=== PATIENT | female | born 1960 | race Hispanic/Latino ===

== ENCOUNTER 2018-01-20 17:04 | Emergency (ER) | payer BC ==
[~2018-01-20] VITALS: Ht 170.2 cm; Wt 98.0 kg
--- OUTSIDE RECORDS SUMMARY | ~2018-01-20 | XMS | Clinical Summary ---
Demographics + + + | Address | [address] [facility] [address] | | | [place] [address] | + + + | Home Phone | | + + + | Preferred Language | Unknown | + + + | Marital Status | | + + + | Temple Affiliation | Unknown | + + + | Race | Unknown | + + + | Ethnic Group | Unknown | + + + Author + + + | Author | [facility] | | | and Rcana | + + + | Organization | [facility] | | | and Rcana | + + + | Address | Unknown | + + + | Phone | Unavailable | + + + Support + + + + + | Name | Relationship | Address | Phone | + + + + + | Pablo Parikh | ECON | [address] | | | | | [place] | | | | | [phone] | | + + + + + | Pablo Parikh | ECON | Unknown | | + + + + + Care Team Providers + +------+ + | Care Assembler Truck Trailer Name | Role | Phone | + +------+ + | Lico Hearn MD | PP | | + +------+ + Allergies + + + + + + | Active Allergy | Reactions | Severity | Noted | Comments | | | | | Date | | + + + + + + | Penicillins | Shortness Of Breath, | High | 11/19/19 | | | | Rash | | 14 | | + + + + + + | Sulfa Antibiotics | Shortness Of Breath, | High | 11/19/19 | | | | Rash | | 14 | | + + + + + + Current Medications + + +-------+---------+------+------+-------+ | Prescription | Sig. | Disp. | Refills | Star | End | Statu | | | | | | t | Date | s | | | | | | Date | | | + + +-------+---------+------+------+-------+ | meloxicam (MOBIC) | Take 15 mg by mouth | | | 05/2 | | Activ | | 15 mg tablet | Daily. | | | 09/21 | | e | | | | | | 14 | | | + + +-------+---------+------+------+-------+ | losartan (COZAAR) | Take 100 mg by mouth | | | 06/0 | | Activ | | 100 MG tablet | Daily. | | | 06/23 | | e | | | | | | 14 | | | + + +-------+---------+------+------+-------+ | | Take 12.5 mg by | | | 06/0 | | Activ | | hydrochlorothiazide | mouth every morning. | | | 01/21 | | e | | (MICROZIDE) 12.5 MG | | | | 14 | | | | capsule | | | | | | | + + +-------+---------+------+------+-------+ | levonorgestrel | 1 Device by | | | | | Activ | | (MIRENA) 20 MCG/24HR | Intrauterine route | | | | | e | | IUD | once. | | | | | | + + +-------+---------+------+------+-------+ | warfarin | Take 5 mg by mouth | | | | | Activ | | (COUMADIN) 5 mg | Daily. | | | | | e | | tablet | | | | | | | + + +-------+---------+------+------+-------+ | enoxaparin | Inject 100 mg under | | | | | Activ | | (LOVENOX) 100 mg/mL | the skin 2 times | | | | | e | | injection | daily. 0.9ML BID | | | | | | + + +-------+---------+------+------+-------+ | MULTIPLE VITAMIN | Take 1 tablet by | | | | | Activ | | PO | mouth Daily. | | | | | e | + + +-------+---------+------+------+-------+ | COENZYME Q-10 PO | Take 1 capsule by | | | | | Activ | | | mouth Daily. | | | | | e | + + +-------+---------+------+------+-------+ | Calcium | Take 1,200 mg by | | | | | Activ | | Carbonate-Vit D-Min | mouth Daily. | | | | | e | | (CALCIUM 1200 PO) | | | | | | | + + +-------+---------+------+------+-------+ Active Problems + + + | Problem | Noted Date | + + + | Superficial thrombophlebitis of left leg | 11/18/2013 | + + + Family History + + +------+ + | Medical History | Relation | Name | Comments | + + +------+ + | Heart disease | Father | | | + + +------+ + | Heart disease | Mother | | | + + +------+ + + +------+--------+ + | Relation | Name | Status | Comments | + +------+--------+ + | Father | | | | + +------+--------+ + | Mother | | | | + +------+--------+ + Social History + +-------+ +--------+------+ | Tobacco Use | Types | Packs/Day | Years | Date | | | | | Used | | + +-------+ +--------+------+ | Never Smoker | | | | | + +-------+ +--------+------+ + +---+---+---+ | Smokeless Tobacco: | | | | | Never Used | | | | + +---+---+---+ + + +---------+ + | Alcohol Use | Drinks/We | oz/Week | Comments | | | ek | | | + + +---------+ + | No | | | | + + +---------+ + + + + | Sex Assigned at | Date Recorded | | | | + + + | Not on file | | + + + Last Filed Vital Signs + + + + | Vital Sign | Reading | Time Taken | + + + + | Blood Pressure | 132/68 | 12/17/20131057 PDT | + + + + | Pulse | 72 | 12/17/20131057 PDT | + + + + | Temperature | 36.6 C (97.8 F) | 12/17/20131057 PDT | + + + + | Respiratory Rate | 16 | 12/17/20131057 PDT | + + + + | Oxygen Saturation | 98% | 12/17/20131057 PDT | + + + + | Inhaled Oxygen | - | - | | Concentration | | | + + + + | Weight | 112.5 kg (248 lb) | 12/17/20131057 PDT | + + + + | Height | 170.2 cm (5' 7") | 12/17/20131057 PDT | + + + + | Body Mass Index | 38.84 | 12/17/20131057 PDT | + + + + Plan of Treatment + + + + + | Health Maintenance | Due Date | Last Done | Comments | + + + + + | Vaccine: | | | | | Dtap/Tdap/Td (1 - | 0 | | | | Tdap) | | | | + + + + + | Cervical Cancer | | | | | Screening (Pap) | 1 | | | + + + + + | Vaccine: Influenza | | | | | (#1) | 8 | | | + + + + + Results Not on filefrom Last 3 Months Insurance +-------+--------+ +------+-------+---------+ | Payer | Benefi | Subscriber | Type | Phone | Address | | | t Plan | ID | | | | | | / | | | | | | | Group | | | | | +-------+--------+ +------+-------+---------+ | BCBS | BCBS | [id number] | PPO | | | | | OUT OF | 1 | | | | | | STATE | | | | | | | PPO | | | | | +-------+--------+ +------+-------+---------+ + +--------+ +--------+ + + | Guarantor Name | Accoun | Relation to | Date | Phone | Billing Address | | | t Type | Patient | of | | | | | | | | | | + +--------+ +--------+ + + | ARSENIO PARIKH | Person | Self | [birth year] | Home: | [address] | | [place] | al/Fam | | 1 | [phone] [place] | | | [place] | | | [phone] | + +--------+ +--------+ + +
--- OUTSIDE RECORDS SUMMARY | ~2018-01-20 | XMS | Clinical Summary ---
Demographics + + + | Address | [address] [facility] [address] [facility] | | | [place] [address] | + + + | Home Phone | | + + + | Preferred Language | Unknown | + + + | Marital Status | | + + + | Sabianism Affiliation | Unknown | + + + | Race | Unknown | + + + | Ethnic Group | Unknown | + + + Author + + + | Author | [facility] | | | and Rcana | + + + | Organization | [facility] | | | and Rcana [...] [place] | | | | | [phone] | | + + + + + | Pablo Parikh | ECON | Unknown | | + + + + + Care Team Providers + +------+ + | Care Shipfitter Name | Role | Phone | + [...] +-------+--------+ +------+-------+---------+ | BCBS | BCBS | [id number] | PPO | | | | | [...] | [place] | | | [phone] | [phone] | + +--------+ +--------+ + +
[~2018-01-20 17:04] MED LIST: B COMPLETE1 EACH PO; CALCIUM + VITA1 EACH PO; CELEBREX100 MG; COQ-10100 MG PO; COZAAR100 MG PO; DAILY MULTIPLE1 EACH PO; HYDROCHLOROTH12.5 M1 PO; HYDROCHLOROTH12.5 MG PO; HYDROCODON-ACE1 EA11 PO; MIRALAX17 GM PO; NUCYNTA75 MG PO; OMEPRAZOLE MAGN20 MG PO; SINGULAIR10 MG PO; XARELTO10 MG PO
[2018-01-20] MEDS ORDERED: FUROSEMIDE20 MG PO (17:53)
[2018-01-20] MEDS ORDERED: PROTONIX40 MG PO (20:49)
== END 2018-01-20 21:09 | disposition home or self-care (01) ==
LOC: ED 17:04
DX: K30 Functional dyspepsia (principal); I10 Essential (primary) hypertension; Z88.0 Allergy status to penicillin; Z88.2 Allergy status to sulfonamides; Z79.899 Other long term (current) drug therapy
CPT/HCPCS: 76705; 80053; 81001; 83690; 85025; 96374; 99284; J7030

== ENCOUNTER 2019-02-13 16:47 | Emergency (ER) | payer BC ==
[~2019-02-13] VITALS: Ht 170.2 cm; Wt 120.2 kg
[~2019-02-13 16:47] MED LIST changes: +DICLOFENAC SODI75 MG PO; +FOLGARD TABLET1 EAC1 PO; +FUROSEMIDE20 MG PO; +GABAPENTIN300 MG PO; +INDOMETHACIN50 MG PO; +METOPROLOL SUCC50 MG PO; +OXYCODONE HCL5 MG PO; +PROTONIX40 MG PO; +TYLENOL325 M1 PO
--- OUTSIDE RECORDS SUMMARY | 2019-02-13 16:50 | XMS ---
PreManage Notification: ARSENIO BARKLEY Security Truck Dock Material Mover Events No recent Security Events currently on file CRITERIA MET - ALEXANDR CARE PROVIDERS SOFIYA LAL [facility] 12/16/2018-Current PHONE: [phone] Silvestre Marie Primary Care Laure HINKLE PHONE: Unknown elis Case or Roving Inspector Current PHONE: Unknown Yesenia Dempsey Current Orthopedic Surgery \T\ Fracture [facility] PHONE: Unknown Kayla has no Care Guidelines for this patient. Chucky VISIT COUNT (12 MO.) 2 JAKE Gaffney TOTAL 2 NOTE: Visits indicate total known visits. ED/UCC VISIT TRACKING (12 MO.) 02/13/2019 16:47 [facility] [place] TYPE: Emergency COMPLAINT: - RIGHT KNEE/ POST OP ISSUE 12/15/2018 18:[address] [facility] [place] TYPE: Emergency COMPLAINT: - LEFT ANKLE PAIN/NON INJURY DIAGNOSES: - Other retirement (current) drug therapy - Essential (primary) hypertension - Pain in left ankle and joints of left foot - Allergy status to penicillin - Allergy status to sulfonamides status INPATIENT VISIT TRACKING (12 MO.) No inpatient visits to display in this time frame [id number]
== END 2019-02-13 17:27 | disposition home or self-care (01) ==
LOC: ED 16:47
DX: T81.33XA Disruption of traumatic injury wound repair, initial encounter (principal); I10 Essential (primary) hypertension; Z88.0 Allergy status to penicillin; Z88.2 Allergy status to sulfonamides; Z79.899 Other long term (current) drug therapy
CPT/HCPCS: 99283

== ENCOUNTER 2019-02-24 07:47 | Day surgery (SDC) | payer BC ==
[~2019-02-24] VITALS: Ht 170.2 cm; Wt 120.2 kg
[~2019-02-24 07:47] MED LIST changes: +LEVAQUIN750 MG PO
--- NOTE | 2019-02-24 09:20 | NUR ---
CHECKED IN WITH PATIENT. PATIENT WAS OFFERED A WARM BLANKET, DECLINED AT THIS TIME. PATIENT DID COMPLAIN OF PAIN IN JOINTS SHE STATED SHE HAD NOT TAKEN HER MEDICATION TODAY. ANESTHESIA PROVIDER WAS NOTIFIED. ON HIS WAY TO PATIENTS ROOM.
[2019-02-24] MEDS ORDERED: HYDROCODON-ACE1 EA11 PO (10:04)
--- NOTE | 2019-02-24 10:12 | NUR ---
02/24/19 Chasidy2 Daniela Marie 1002 PT TO PACU AWAKE BUT DROWSY, DRESSING PICCO WITH ONE DIME SIZE SPOT OF BLOOD ON IT. O2 VIA MASK AT 10L CHANGED TO NASAL CANNULA AT 3L ON ARRIVAL. PT MAINTAINS SAT AT 98%.
--- NOTE | 2019-02-25 08:01 | OR ---
[facility] [address] [place], [place] [address] Signed DATE OF OPERATION: 02/24/2019 SURGEON: Hardik Marie MD PREOPERATIVE DIAGNOSIS: Wound necrosis, right knee, lateral incision. POSTOPERATIVE DIAGNOSIS: Wound necrosis, right knee, lateral incision. PROCEDURE PERFORMED: Irrigation and debridement of skin and subcutaneous tissue. ANESTHESIA: General. BLOOD LOSS: Minimal. BRIEF HISTORY: Arsenio is a 58-year-old female, who about a month ago underwent an IT band release and lengthening. She healed uneventfully. However, she developed some fat necrosis at the top part of her wound, a little bit of wound healing issue at the inferior aspect. The wound opened up and was treated with packing until we can get her to surgery. Risks and benefits of operative treatment were discussed with her and she elected to proceed. There was no active infection seen. DESCRIPTION OF PROCEDURE: Once consent was obtained, she was taken to the operating room. After adequate anesthesia, she was placed on operating table. All downside pressure points were well padded. The right leg was prepped and draped in a standard sterile fashion. The wound dehiscence part was limited to about 0.5 cm deep into the fat and subcutaneous tissue. The distal part of the wound was not opened, but was just a little bit poorly healed. We then did an elliptical incision around both and in the proximal end, we undermined a little bit to allow closure. The wounds were then copiously irrigated with IrriSept irrigation. The wounds were then closed using 2-0 nylon in a [id number] configuration to reduce wound tension. Excellent approximation was obtained with no skin tension. The wounds were then cleansed and a CHANDLER wound VAC dressing was placed. She was then awakened and taken to the recovery room in satisfactory condition. All sponge, Electronically Signed By: HARDIK MARIE MD 02/25/19 0801 PATIENT NAME: ARSENIO BARKLEY OPERATIVE REPORT DATE OF : 60 REPORT #: [id number] PHYSICIAN: HARDIK MARIE MD PCP: SOFIYA LAL MD REPORT IS CONFIDENTIAL AND NOT TO BE RELEASED WITHOUT AUTHORIZATION [facility] [address] [place] [address] [place], [place] [address] Signed needle, and instrument counts were correct. Hardik Marie MD BA/MODL /[id number] Copies: ~ Electronically Signed By: HARDIK MARIE MD 02/25/19 0801 PATIENT NAME: ARSENIO BARKLEY OPERATIVE REPORT DATE OF : 60 REPORT #: [id number] PHYSICIAN: HARDIK MARIE MD PCP: SOFIYA LAL MD REPORT IS CONFIDENTIAL AND NOT TO BE RELEASED WITHOUT AUTHORIZATION
== END 2019-02-24 12:15 | disposition home or self-care (01) ==
LOC: DS 07:47 → OPS 07:47 → DS 10:45 → OPS 12:15
PROVIDERS: Specialist
PROC: 0JBN0ZZ Excision of Right Lower Leg Subcutaneous Tissue and Fascia, Open Approach (ICD-10-PCS; principal; 2019-02-24 10:45)
DX: T81.31XA Disruption of external operation (surgical) wound, not elsewhere classified, initial encounter (principal); I10 Essential (primary) hypertension; E66.9 Obesity, unspecified; Z68.41 Body mass index [BMI] 40.0-44.9, adult; Z88.0 Allergy status to penicillin; Z88.2 Allergy status to sulfonamides; Z79.899 Other long term (current) drug therapy; Z98.890 Other specified postprocedural states
CPT/HCPCS: J0690; J1885; J2250; J2405; J2704; J2765; J3010; J7120

== ENCOUNTER 2022-07-05 07:10 | Day surgery (SDC) | payer BC ==
[~2022-07-05] VITALS: Ht 170.2 cm; Wt 118.2 kg
--- NOTE | 2022-07-05 10:56 | NUR ---
PT ALERT,ORIENTED AND SUPPORTED BY HER . PT HAS HAD PREVIOUS SCOPE. ALL QUESTIONS ASKED ANSWERED. GAVE BLESSING AND WILL OFLLOW
--- NOTE | 2022-07-05 10:58 | NUR ---
07/05/22 Abner8 Haley Allen 1054-PATIENT ARRIVED TO PACU ON RA RR EVEN. PATIENT REACTIVE TO VERBAL STIMULI REMAINS DROWSY. DENIES PAIN OR NAUSEA. IVF INFUSING. ABDOMEN SOFT. PATIENT DOZES BACK TO SLEEP.
--- NOTE | 2022-07-06 07:27 | OR ---
[facility] [address] [place], [place] [address] Signed DATE OF OPERATION: 07/05/2022 SURGEON: Miracle Guevara MD PREOPERATIVE DIAGNOSES: 1. Long redundant colon. 2. Screening. POSTOPERATIVE DIAGNOSIS: Long redundant colon. PROCEDURE: Colonoscopy without biopsy. ESTIMATED BLOOD LOSS: None. INDICATIONS: Arsenio is a 61-year-old, obese female, asked to see me for her followup colonoscopy. I helped her and at age 50 for her initial screening colonoscopy. She had a very long redundant colon. She took a large amount of Versed and fentanyl. We had to roll her supine several times in order to finally reach the cecum. There were no polyps. We asked her to return in 10 years for repeat colonoscopy. She has no lower GI complaints. There is no family history of colon cancer or polyps. In the office, I had given her a pamphlet on colonoscopy. She understands the nature of the test. There is risk including, but not limited to gas bloating, crampy abdominal pain, bleeding, perforation requiring surgery, and missed diagnosis. We also reviewed the need for monitored anesthesia care given her body mass index as well as her very long redundant colon. She had expressed understanding and wished to proceed. PROCEDURE IN DETAIL: Arsenio was taken into our endoscopy suite and placed in the left lateral decubitus position. She was given IV propofol per our nurse erection shop supervisor. A digital rectal exam was performed and this was unremarkable. No external hemorrhoids. Good sphincter tone. The adult colonoscope was introduced and sure enough she has an obvious long redundant colon. We had to move her several times into the supine position and back into the left lateral decubitus position with two people helping with abdominal compression. We eventually made our way down to the appendiceal orifice. Overall, our prep was good, although would hurt if she took more prep in the future. The scope was then slowly withdrawn. We took several pictures throughout for photodocumentation. There were no Electronically Signed By: MIRACLE GUEVARA MD 07/06/22 0727 PATIENT NAME: ARSENIO BARKLEY OPERATIVE REPORT DATE OF : 60 REPORT #: [id number] PHYSICIAN: MIRACLE GUEVARA MD PCP: SOFIYA LAL MD REPORT IS CONFIDENTIAL AND NOT TO BE RELEASED WITHOUT AUTHORIZATION [facility] [address] [place] [id number] Signed polyps. She had no diverticulosis. Again, a very long redundant colon particular on the left side. Once in the rectum, the scope had been retroflexed and there was very minimal internal hemorrhoid tissue. After this, the gas was suctioned out. The colonoscope removed. Arsenio tolerated the procedure quite well. RECOMMENDATIONS: Arsenio can return in 10 years for repeat colonoscopy. She certainly would benefit from some additional bowel prep. She should always have monitored anesthesia care. Miracle Guevara MD ALB/CORINAL /[id number] cc: MD Sofiya Brunner MD Copies: MIRACLE GUEVARA MD, RUSSELL BARR MD ~ Electronically Signed By: MIRACLE GUEVARA MD 07/06/22 0727 PATIENT NAME: ARSENIO BARKLEY OPERATIVE REPORT DATE OF : 60 REPORT #: [id number] PHYSICIAN: MIRACLE GUEVARA MD PCP: SOFIYA LAL MD REPORT IS CONFIDENTIAL AND NOT TO BE RELEASED WITHOUT AUTHORIZATION
== END 2022-07-05 11:25 | disposition home or self-care (01) ==
LOC: DS 07:10
PROVIDERS: ATTEND Colon & Rectal Surgery
PROC: 0DJD8ZZ Inspection of Lower Intestinal Tract, Via Natural or Artificial Opening Endoscopic (ICD-10-PCS; principal; 2022-07-05 09:00)
DX: Z12.11 Encounter for screening for malignant neoplasm of colon (principal); K63.89 Other specified diseases of intestine; E66.9 Obesity, unspecified; I10 Essential (primary) hypertension; Z68.41 Body mass index [BMI] 40.0-44.9, adult
CPT/HCPCS: J2704; J7121

== ENCOUNTER 2024-05-03 17:16 | Observation (INO) | payer BC ==
[~2024-05-03] VITALS: Ht 170.2 cm; Wt 129.0 kg
[~2024-05-03 17:16] MED LIST changes: +AMLODIPINE BESY10 MG PO; +HYDROMORPHONE HC4 MG PO; +MONTELUKAST SOD10 MG PO; -TYLENOL325 M1 PO; +TYLENOL325 MG
[2024-05-03] MEDS ORDERED: ondansetron HCL 4 MG/2 ML VIAL IV ONE (17:45)
[2024-05-03] MEDS ORDERED: LOSARTAN-HCTZ1 EAC2 PO (17:49)
[2024-05-03] MEDS ORDERED: METOPROLOL SUC100 MG PO (17:50)
[2024-05-03] MEDS ORDERED: LYRICA75 MG PO (17:51)
[2024-05-03] MEDS ORDERED: PHENTERMINE HCL30 MG PO (17:51)
[2024-05-03 18:11] LABS: BASOPHILS 0.1 % (0-2); EOSINOPHILS 1.4 % (0-6); HEMATOCRIT 40.4 % (35.0-50.0); HEMOGLOBIN 13.8 g/dL (12.0-18.0); LYMPHOCYTES 2.8 % (24-44); MCH 33.4 (27-36); MCHC 34.1 g/dl (30-36); MCV 97.9 fl (81-99); MONOCYTES 1.4 % (0-12); NEUTROPHILS 94.3 % (39-80); PLATELET COUNT 208 K/uL (140-440); RBC 4.13 M/ul (4.3-5.7); RDW 13.4 (10.5-15.0)
[2024-05-03 18:27] LABS: ALBUMIN 2.8 g/dL (3.4-5.0); ALBUMIN/GLOBULIN RATIO 0.74 (1.1-2.4); ANION GAP 13.6 (7-21); BUN/CREATININE RATIO 19.35 (6.0-28.6); CALCIUM 7.8 mg/dL (8.5-10.1); CREATININE, SERUM 1.24 mg/dL (0.55-1.02); POTASSIUM 3.6 mmol/L (3.5-5.1); PROTEIN, TOTAL 6.6 g/dL (6.4-8.2)
[2024-05-03] MEDS ORDERED: SODIUM CHLORIDE 0.9% 1,000 ML IV PRN (19:00)
[2024-05-03] MEDS ORDERED: HYDROmorphone HCL 1 MG/ML SYR IV ONE (19:00)
[2024-05-03] MEDS ORDERED: PANTOPRAZOLE SODIUM 40 MG/10 ML VIAL IV ONE (19:00)
[2024-05-03] MEDS ORDERED: KETOROLAC TROMETHAMINE 15 MG/ML VIAL IV ONE (19:45)
[2024-05-03 19:56] LABS: BILIRUBIN, URINE NEGATIVE (negative); BLOOD/HGB, URINE NEGATIVE (Negative); KETONE, URINE NEGATIVE (Negative); LEUK ESTERASE, URINE NEGATIVE (negative); NITRITE, URINE NEGATIVE (negative); PH, URINE 7.5 (5-7)
[2024-05-03] MEDS ORDERED: ACETAMINOPHEN 500 MG TAB PO ONE (21:00)
[2024-05-03] MEDS ORDERED: LACTATED RINGER'S 1,000 ML IV ONE (21:30)
[2024-05-03] MEDS ORDERED: HYDROmorphone HCL 1 MG/ML SYR IV PRN (22:00)
[2024-05-03 22:01] LABS: LACTIC ACID, BLOOD 2.1 mmol/L (0.4-2.0)
[2024-05-04] VITALS (15 sets, daily range): BP systolic 117–145; BP diastolic 49–75
[2024-05-04] MEDS ORDERED: LACTATED RINGER'S 1,000 ML IV SCH ×2 (00:15→10:30)
[2024-05-04] MEDS ORDERED: FAMOTIDINE 20 MG/ 2 ML VIAL IV ONE (00:15)
[2024-05-04] MEDS ORDERED: CEFAZOLIN SODIUM 2 GM/20 ML SYR IV ONE (00:15)
[2024-05-04] MEDS ORDERED: HYDROmorphone HCL 1 MG/ML SYR IV PRN ×2 (00:15→12:00)
[2024-05-04] MEDS ORDERED: ondansetron HCL 4 MG/2 ML VIAL IV PRN ×3 (00:15→12:00)
--- NOTE | 2024-05-04 01:00 | NUR ---
RECIEVED REPORT FROM ED RN. PATIENT ARRIVED VIA WHEELCHAIR. PATIENT AMBULATED TO THE BED WITHOUT DIFFICULTY. ADMISSION COMPLETED. IV FLUIDS INFUSING ORDERED. AT BEDSIDE. PATIENT DENIES ADDITIONAL NEEDS AT THIS TIME. CALL LIGHT IN REACH.
[2024-05-04 02:44] LABS: LACTIC ACID, BLOOD 2.7 mmol/L (0.4-2.0)
--- NOTE | 2024-05-04 02:52 | NUR ---
PT RESTING WITH EYES CLOSED. AWAKENS EASILY. VS OBTAINED, WNL. PT REPORTS SHE IS RESTING COMFORTABLY. DENIES NEEDS.
--- NOTE | 2024-05-04 03:07 | NUR ---
RECIEVED CRITICAL VALUE LAB RESULT FOR LACTIC REPEAT, 2.7. CONTACTED PROVIDER. PHONE ORDER VERIFIED BY REPEAT BACK TO REPEAT THE LACTIC LAB, NO OTHER NEW ORDERS. LACTIC REDRAW ORDER ENTERED.
--- NOTE | 2024-05-04 04:36 | NUR ---
IN ROOM TO ROUND ON PATIENT. PATIENT RESTING IN BED ON BACK WITH EYES CLOSED. RESPIRATIONS EVEN AND ULABORED. NO NEEDS IDENTIFIED AT THIS TIME. CALL LIGHT IN REACH.
[2024-05-04 05:22] LABS: RDW 13.7 (10.5-15.0)
[2024-05-04 05:25] LABS: BASOPHILS 0.3 % (0-2); EOSINOPHILS 1.8 % (0-6); HEMATOCRIT 37.7 % (35.0-50.0); LYMPHOCYTES 6.6 % (24-44); MCH 33.5 (27-36); MCHC 34.5 g/dl (30-36); MCV 97.3 fl (81-99); MONOCYTES 5.4 % (0-12); NEUTROPHILS 85.9 % (39-80); PLATELET COUNT 179 K/uL (140-440); RBC 3.87 M/ul (4.3-5.7)
[2024-05-04 05:39] LABS: ALBUMIN 2.3 g/dL (3.4-5.0); ALBUMIN/GLOBULIN RATIO 0.72 (1.1-2.4); BILIRUBIN, TOTAL 0.6 ng/dL (0.2-1.0); BUN/CREATININE RATIO 32.95 (6.0-28.6); CALCIUM 7.5 mg/dL (8.5-10.1); CREATININE, SERUM 0.88 mg/dL (0.55-1.02); PROTEIN, TOTAL 5.5 g/dL (6.4-8.2)
[2024-05-04] MEDS ORDERED: CEFAZOLIN SODIUM 1 GM/10 ML SYR IV SCH (06:00)
--- NOTE | 2024-05-04 07:13 | NUR ---
REPORT RECEIVED FROM BOARD OPERATOR RN RALEIGH. PATIENT IS SITTING UPRIGHT IN BED WITH EYES OPEN AND RESPIRATIONS ARE EVEN AND UNLABORED. PATIENT STATED NO NEEDS AT THIS TIME. CALL LIGHT AND PERSONAL BELONGINGS ARE WITHIN REACH.
--- NOTE | 2024-05-04 08:31 | NUR ---
PATIENT IS SITTING UPRIGHT IN BED WITH EYES OPEN AND RESPIRATIONS ARE EVEN AND UNLABORED. FULL ASSESSMENT COMPLETE AND DOCUMENTED IN THE CHART. PATIENT IS ALERT AND ORIENTED TIMES FOUR. PATIENT WITH NO COMPLAINTS OF PAIN AT THIS TIME. PATIENT IS ON ROOM AIR AND LUNG SOUNDS ARE CLEAR BILATERALLY. CARDIAC WITH NORMAL S1 AND S2 ON AUSCULTATION. RADIAL AND PEDAL PULSES ARE STRONG BILATERALLY. BLE WITH 1+ PITTING EDEMA. SENSATION INTACT WITH NO COMPLAINTS OF NUMBNESS OR TINGLING. PATIENT IS NPO AT THIS TIME. BOWEL TONES ARE ACTIVE IN ALL FOUR QUADRANTS. SKIN WITH SCATTERED BRUISING NOTED. IV SITE IN THE RAC AND THE LEFT FOREARM BOTH FLUSHED WITH 10 ML NORMAL SAINE. IV IN THE RAC IS SALINE LOCKED AND THE DRESSING IS CLEAN, DRY, AND INTACT. IV IN THE L FOREARM WITH LR INFUSING AT 125 ML/HR. IV DRESSING IS CLEAN, DRY, AND INTACT. PATIENT STATED NO FURTHER NEEDS AT THIS TIME. CALL LIGHT AND PERSONAL BELONGINGS ARE WITHIN REACH.
[2024-05-04] MEDS ORDERED: FAMOTIDINE 20 MG/ 2 ML VIAL IV SCH ×2 (09:00→10:32)
--- NOTE | 2024-05-04 09:12 | NUR ---
PATIENT IS SITTING UPRIGHT IN BED WITH EYES OPEN AND RESPIRATIONS ARE EVEN AND UNLABORED. PATIENT IS SITTING IN THE CHAIR AT BEDSIDE. LR IS INFUSING AT 125 ML/HR. PATIENT STATED NO FURTHER NEEDS AT THIS TIME. CALL LIGHT AND PERSONAL BELONGINGS ARE WITHIN REACH.
--- NOTE | 2024-05-04 10:10 | NUR ---
RN AND ROUNDED ON THE PATIENT AT THIS TIME. GALLBLADDER PACKET GIVEN TO THE PATIENT AND THE PATIENTS . PATIENT AND STATED NO FURTHER QUESTIONS OR CONCERNS AT THIS TIME. CALL LIGHT AND PERSONAL BELONGINGS ARE WITHIN REACH.
--- NOTE | 2024-05-04 10:27 | NUR ---
patient is npo, and has not voided on this tso's shift yet. call light within reach.
[2024-05-04] MEDS ORDERED: KETOROLAC TROMETHAMINE 30 MG/ML VIAL IV PRN (10:30)
[2024-05-04] MEDS ORDERED: MORPHINE SULFATE 10 MG/ML VIAL IV PRN (10:30)
[2024-05-04] MEDS ORDERED: AMLODIPINE BESYLATE 10 MG TAB PO SCH (10:32)
[2024-05-04] MEDS ORDERED: LOSARTAN POTASSIUM 100 MG TAB PO SCH (10:33)
[2024-05-04] MEDS ORDERED: METOPROLOL SUCCINATE 100 MG TABCR PO SCH (10:33)
[2024-05-04] MEDS ORDERED: iopamidoL 30 ML VIAL ONE (10:36)
[2024-05-04] MEDS ORDERED: SODIUM CHLORIDE 0.9% 60 ML IV ONE (10:37)
--- NOTE | 2024-05-04 11:03 | NUR ---
MEDICATIONS ADMINISTERED PER THE EMAR. PATIENT IS NOW WITH LAVELLE, SAND ANALYST AND GETTING PRE-PROCEDURE [place] COMPLETE. PATIENT STATED NO FURTHER NEEDS AT THIS TIME. CALL LIGHT AND PERSONAL BELONGINGS ARE WITHIN REACH.
[2024-05-04] MEDS ORDERED: propofoL 200 MG/20 ML VIAL ONE (11:17)
[2024-05-04] MEDS ORDERED: ROCURONIUM BROMIDE 50 MG/5 ML SYR ONE ×2 (11:17→12:12)
[2024-05-04] MEDS ORDERED: LIDOCAINE HCL 2% 5 ML SDV ONE ×2 (11:17→11:20)
[2024-05-04] MEDS ORDERED: KETOROLAC TROMETHAMINE 30 MG/ML VIAL ONE (11:17)
[2024-05-04] MEDS ORDERED: ACETAMINOPHEN 1,000 MG/100 ML VIAL ONE (11:17)
[2024-05-04] MEDS ORDERED: ondansetron HCL 4 MG/2 ML VIAL ONE (11:17)
[2024-05-04] MEDS ORDERED: LIDOCAINE HCL 2% 20 MG/ML VIAL INJ ONE (11:17)
[2024-05-04] MEDS ORDERED: SUCCINYLCHOLINE IN 0.9% NACL 200 MG/10 ML SYRINGE ONE (11:17)
[2024-05-04] MEDS ORDERED: SUGAMMADEX SODIUM 200 MG/2 ML ML ONE (11:17)
[2024-05-04] MEDS ORDERED: DEXAMETHASONE SOD PHOS 4 MG/ML VIAL ONE (11:17)
[2024-05-04] MEDS ORDERED: fentaNYL citrate 100 MCG/2 ML VIAL ONE (11:17)
[2024-05-04] MEDS ORDERED: SCOPOLAMINE 1 MG/3 DAYS PATCH 1 EACH TDSY ONE (11:18)
[2024-05-04] MEDS ORDERED: dexmedeTOMIDine HCl 200 MCG/2 ML VIAL ONE (11:19)
[2024-05-04] MEDS ORDERED: KETAMINE in NS 50 MG/5 ML SYR ONE (11:19)
--- NOTE | 2024-05-04 11:27 | NUR ---
PATIENT LEFT THE FLOOR AT THIS TIME WITH LILIA SORIA FROM OR/PACU/DAY SURGERY.
[2024-05-04] MEDS ORDERED: CEFAZOLIN SOD 1,000 MG/10 ML VIAL ONE (11:36)
[2024-05-04] MEDS ORDERED: NALOXONE HCL 0.4 MG SYR IV PRN (12:00)
[2024-05-04] MEDS ORDERED: fentaNYL citrate 50 MCG/ML SDV IV PRN (12:00)
[2024-05-04] MEDS ORDERED: droPERidol 5 MG/2 ML VIAL IV PRN (12:00)
[2024-05-04] MEDS ORDERED: IBLOOD GLUCOSE TEST STRIP 1 EA TEST VI PRN (12:00)
[2024-05-04] MEDS ORDERED: PROCHLORPERAZINE EDISYLATE 10 MG/2 ML VIAL IV PRN (12:00)
--- NOTE | 2024-05-04 12:18 | EKG ---
[facility] [address] [facility] [place] [address] Signed Normal sinus rhythm Minimal voltage criteria for LVH, may be normal variant ( R in aVL ) Inferior infarct , age undetermined Abnormal ECG When compared with ECG of 28-JUN-2022 10:32, premature ventricular complexes are no longer present Criteria for Septal infarct are no longer present Inferior infarct is now present Confirmed by Sera Cooney MD ([id number]) on 05/04/2024 12:18:12 PM Electronically Signed By: SERA COONEY DO 05/04/24 1218 PATIENT NAME: ARSENIO BARKLEY Electrocardiogram DATE OF : 60 PHYSICIAN: SERA COONEY DO REPORT #: [id number] REPORT IS CONFIDENTIAL AND NOT TO BE RELEASED WITHOUT AUTHORIZATION
--- NOTE | 2024-05-04 12:38 | NUR ---
PATIENT REMAINS OFF THE FLOOR AT THIS TIME IN SURGERY. PATIENT IS IN THE ROOM AND SITTING ON THE COUCH AND READING A BOOK.
[2024-05-04] MEDS ORDERED: LACTATED RINGER'S 1,000 ML IV ONE (12:54)
--- NOTE | 2024-05-04 13:16 | NUR ---
PATIENT REMAINS OFF THE FLOOR AT THIS TIME.
--- NOTE | 2024-05-04 13:31 | NUR ---
05/04/24 1331 EPIFANIO MCCULLOUGH 1317 PT ARRIVED TO PACU VIA STREACHER. PT NEEDING SOME POSITIONAL SUPPORT AND JAW THRUSTING TO KEEP AIRWAY PATENT. PT HAS ORAL AIRWAY IN PLACE AND 10L O2 VIA FACE MASK. REPORT TAKEN FROM DEBONE PROCESSING SUPERVISOR. ALL MONITORS ATTACHED. 1319 PT RESPONSIVE TO TACTILE STIMULI, PT ABLE TO FOLLOW COMMANDS TO OPEN MOUTH AND REMOVE ORAL AIRWAY. 1325 PT AROUSABLE TO VERBAL STIMULI. PT STATES SHE HAS NO PAIN AT THIS TIME OR NAUSEA. PT REPORTS JUST FEELIG TIRED. PT ABLE TO FOLLOW COMMANDS FOR DEEP BREATHING.
[2024-05-04] MEDS ORDERED: PANTOPRAZOLE SODIUM 40 MG TABEC PO SCH (13:36)
[2024-05-04] MEDS ORDERED: CIPROFLOXACIN500 MG PO (13:42)
[2024-05-04] MEDS ORDERED: CIPROFLOXACIN 500 MG TAB PO SCH (13:45)
[2024-05-04] MEDS ORDERED: PERCOCET 7.5-31 EACH PO (13:45)
[2024-05-04] MEDS ORDERED: CEFAZOLIN SODIUM 3 GM/30 ML SYR IV SCH (14:00)
--- NOTE | 2024-05-04 14:07 | NUR ---
Pt arrived to the room via PACU bed at about 1358 hours. Pt report received from LILIA Shin. Pt scoot transferred from PACU bed to bed. PT is drowsy but awake, alert, and oriented. Pt able to sip water and eat ice chips, no nausea, reports slight pain in her abdomen and rates it 4 out of 10 at this time. Pt's at bedside. VSS. Pt provided with contreras anderson and osvaldo. PACU placed pt on 3LPM O2 via NC as she desats while asleep. 5 lap sites with SS visualized and noted that the umbilical site has moderate amount of serosanguinous drainage. Pt has a scopalomine patch behind her left ear. Side rails up x4, call light in reach.
[2024-05-04] MEDS ORDERED: IBUPROFEN 600 MG TAB PO PRN (14:15)
[2024-05-04] MEDS ORDERED: OXYCODONE/APAP 7.5/325 TAB PO PRN (14:15)
[2024-05-04] MEDS ORDERED: ACETAMINOPHEN 500 MG TAB PO PRN (14:15)
--- NOTE | 2024-05-04 14:20 | NUR ---
PATIENT IS SITTING UPRIGHT IN BED WITH EYES OPEN AND RESPIRATIONS ARE EVEN AND UNLABORED. PATIENT STATES "I AM TIRED". PATIENT IS SITTING IN THE CHAIR AT BEDSIDE. PATIENT AND FAMILY STATED NO FURTHER NEEDS AT THIS TIME. CALL LIGHT AND PERSONAL BELONGINGS ARE WITHIN REACH.
--- NOTE | 2024-05-04 15:45 | NUR ---
1400 ANCEF ADMINISTERED PER THE EMAR. ASSESSMENT COMPLETE AND DOCUMENTED IN THE CHART. PATIENT AMBULATED TO THE BATHROOOM AND VOID 400 ML URINE. PATIENT IS ALERT AND ORIENTED TIMES FOUR. PATIENT IS ON ROOM AIR AND LUNG SOUNDS ARE CLEAR BILATERALLY. CARDIAC WITH NORMAL S1 AND S2 ON AUSCULTATION. RADIAL AND PEDAL PULSES ARE STRONG BILATERALLY. BLE WITH 1+ PITTING EDEMA. SENSATION INTACT WITH NO COMPLAINTS OF NUMBNESS AND TINGLING. IV IN THE LEFT HAND FLUSHED WITH 10 ML NORMAL SALINE. LR IS INFUSING AT 85 ML/HR. BOWEL TONES ARE ACTIVE IN ALL FOUR QUADRANTS. PATIENT IS ON A REGULAR DIET. LAST BM WAS 05/03/24. ABDOMEN WITH 5 LAP SITES. LAP SITES IN THE UMBILICUS WITH DRY DRAINAGE NOTED. PATIENT IS NOW LYING IN THE CHAIR ON RA WITH THE CPOX AT BEDSIDE. PATIENT IS SITTING ON THE COUCH. PATIENT STATED NO FURTHER NEEDS AT THIS TIME. CALL LIGHT AND PERSONAL BELONGINGS ARE WITHIN REACH.
--- NOTE | 2024-05-04 17:13 | NUR ---
NOTIFIED OF THE PATIENT FEELING CAUTIOUS ABOUT GOING HOME TONIGHT. EXPRESSED UNDERSTANDING. NO NEW ORDERS AT THIS TIME. CALL ENDED.
--- NOTE | 2024-05-04 18:09 | NUR ---
PATIENT IS LYING IN THE CHAIR WITH EYES OPEN AND RESPIRATIONS ARE EVEN AND UNLABORED. CPOX AT THE BEDSIDE. SEVERAL VISITORS ARE SITTING ON THE COUCH IN THE ROOM. CALL LIGHT AND PERSONAL BELONGINGS ARE WITHIN REACH.
--- NOTE | 2024-05-04 20:15 | NUR ---
In bed, room air, post op CPOX on at bedside. moves and repositions self in bed, denies c/o abd pain. IVF infusing LH, SLRA intact.. abd tender, soft, large 5 lap sites with old drainage. SCDS in place. in room
--- NOTE | 2024-05-04 22:52 | NUR ---
AWAKE, C/O MILD ABD DISCOMOFRT BUT DENIES NEED FOR PAIN MEDS. ON ROOM AIR, IVF INFUSING, NO C/O ADVERSE REACTION TO ABX. ABD LARGE SOFT HOS, 5 ABD LAP SITES WITH OLD DRAINAGE SPECIALLY UMBILICAL AREA, STATED BURPING NOT PASSING RECTAL GAS YET. VERY HYPOACTIVE BOWEL TONES, SCDS IN PLACE, TRACE EDEMA AT ANKLES, ELEVATES, PT ENCOURAGD TO AMBULATE. IN BED DRWOSY AT THIS TIME, WILL ENCOURAGE WHEN AWAKE. PLEASANT AND COOPERATIVE
[2024-05-05 01:48] VITALS: BP 121/53
[2024-05-05 01:51] VITALS: BP 121/53
--- NOTE | 2024-05-05 02:00 | NUR ---
AWAKENS EASILY, ON ROOM AIR, POST OP CPOX AT BEDSIDE SATS WNL. DENIES SOB OR C/O PAIN. IVF INFUSING W/O PROBLEMS. 5 ABD LAP SITES WITHOLD DRAINAGE, MAMIE, ANAM PASSING RECTAL FLATUS, STATED FREQUENT ORAL BURPING. SCDS IN PLACE
[2024-05-05 05:50] VITALS: BP 121/53
--- NOTE | 2024-05-05 05:59 | NUR ---
Awakens easily, c/o abd pain, abd soft, tender, [address] with old drainage. MAMIE, burping but not passing rectal flatus. Up to BRP, 1PA, voided QS dark medium yellow urine. Did own alejandro care and am care. Back to chair, tolerated fair. IVf infusing
--- NOTE | 2024-05-05 07:03 | NUR ---
Pt report received from LILIA Jane. Pt is sitting up in the chair, BLE elevated, denies pain at this time. Call light in reach. White board updated.
--- NOTE | 2024-05-05 08:18 | NUR ---
UR CLINICAL REVIEW: [facility]-MEET INPT CRITERIA FOR KIERA BOSE PPO INPT 05/04/24 @ 0016 ORDER MATCHES REG CLINICALS FAXED TO [facility] FOR REVIEW DISCHARGE TO HOME WHEN STABLE
--- NOTE | 2024-05-05 08:19 | NUR ---
PATIENT IS SITTING UP IN CHAIR, IS IN ROOM. PATIENT RATES ABD PAIN 3/10 AND DENIES NEEDING MEDICATION. PATIENT DENIES OTHER NEEDS.
--- NOTE | 2024-05-05 08:23 | NUR ---
PATIENT IN BED AT THIS TIME. CLINIC COORDINATOR WENT INTO PATIENTS ROOM FOR HOURLY ROUNDS. CALL LIGHT WITHIN REACH, NO FURTHER NEEDS AT THIS TIME.
[2024-05-05 09:29] VITALS: BP 98/65
[2024-05-05 10:35] VITALS: BP 132/59
--- NOTE | 2024-05-05 10:44 | NUR ---
PATIENT IN CHAIR AT THIS TIME. DEICER INSPECTOR PNEUMATIC CHARTED VITALS AND I&O'S. CALL LIGHT WITHIN REACH, NO FURTHER NEEDS AT THIS TIME.
--- NOTE | 2024-05-07 12:25 | OR ---
[facility] [address], [place] [address] Signed DATE OF OPERATION: 05/04/2024 SURGEON: Javier Tomlin MD PREOPERATIVE DIAGNOSES: 1. Acute acalculous cholecystitis. (clinical cholecystitis with gallbladder sludge). 2. Morbid obesity. BMI greater than 45. 3. Abnormal appendix 9 mm bulbous tip. POSTOPERATIVE DIAGNOSES: 1. Acute acalculous cholecystitis/profound cholesterolosis strawberry gallbladder. 2. Chronically inflamed tip of the appendix. PROCEDURES: 1. Laparoscopic cholecystectomy with intraoperative cholangiogram. 2. Surgeon-directed fluoroscopy. 3. Appendectomy. ANESTHESIA: General endotracheal; Carlin Casiano CRNA and local 10 mL of 0.25% Marcaine with epinephrine. INDICATION: This 63-year-old morbidly obese woman presents to the emergency room late last night, evaluated by Dr. Wolf and subsequently Dr. Barrientos for an episode of severe pain in the epigastric area earlier in the day that was nearly disabling. The patient does have family history of biliary disease and a daughter is morbidly obese. Has had two healthy children and highly suspect for a biliary source of her problem. A CT scan was performed which showed a dilated gallbladder but did not show stones. There were no other findings of note other than the appendix that had a 9 mm bulbous tip to it. An ultrasound was performed which did not show gallstones, but it did show "sludge." The patient was admitted, given intravenous antibiotics, parenteral pain medication and so forth and is much improved today, but is still likely to have had an episode of significant biliary colic or subacute cholecystitis and on that basis has been recommended by me to consider laparoscopic cholecystectomy, possible open procedure and given the abnormality on this CT scan of the appendix at least evaluation of the appendix with possible appendectomy. The risk of bleeding, infection, bile duct injury, failure of diagnosis, missed diagnosis, and need for other indicated procedures was reviewed with the patient and her , they understand and wished to proceed. Electronically Signed By: JAVIER TOMLIN MD 05/07/24 1225 PATIENT NAME: ARSENIO BARKLEY OPERATIVE REPORT DATE OF : 60 REPORT #: [id number] PHYSICIAN: JAVIER TOMLIN MD PCP: SOFIYA LAL MD REPORT IS CONFIDENTIAL AND NOT TO BE RELEASED WITHOUT AUTHORIZATION [facility] [address], [place] [address] Signed FINDINGS: Indeed the gallbladder was quite markedly inflamed. There were filmy adhesions of the capsule of the liver on the right side. Cholangiogram showed no sign of filling defect or biliary anomaly. Complete cholecystectomy was performed. There were dense adhesions to the undersurface of the gallbladder with omental adhesions as well. As regards the base of the appendix appeared normal. However, the distal portion was densely tethered to the retroperitoneum and ultimately was excised though it did require segmental resection to fully remove the appendix tip. Complete resection was undertaken. There was no infiltration of the appendiceal tip into the retroperitoneum. However, I suspect that she has had a subclinical case with appendicitis in the past given the findings. There is no clear evidence of neoplasm of the tip of the appendix, however, though final pathology is pending. DESCRIPTION OF PROCEDURE: The patient was brought to the operating room, given a general endotracheal anesthetic. Ancef antibiotic was given in the operating room given the time interval since last dose. Sequential compression device stockings were used. The abdomen was prepared with chlorhexidine solution and draped sterilely. An infraumbilical incision was made and using an open Kina cannula technique, the abdomen was entered. Pneumoperitoneum achieved to a level of 14 mmHg of carbon dioxide gas. Inspection showed no sign of ascites or carcinomatosis. The gallbladder was quite markedly inflamed quite obviously. The liver itself appeared normal. Three additional trocars were placed in usual configuration in the subxiphoid, right midclavicular, and right anterior axillary line. The gallbladder was somewhat adherent to the hepatic flexure of the colon as well as omental adhesions. Sequential sharp dissection of the adhesions from the gallbladder allowed sequential elevation of the gallbladder cephalad. Ultimately, the gallbladder was fully exposed and quite obviously dilated and subacutely inflamed. The infundibulum was grasped laterally and using blunt electrocautery dissection the triangle of Calot was dissected free ultimately attaining the critical view of safety. Cystic arterial branches were doubly clipped and later divided. A clip was applied across gallbladder cystic duct junction and a transverse choledochotomy made in the cystic duct. Egress of some bile was noted. Using the Chu type cholangiocatheter intraoperative cholangiography was undertaken showing free flow of contrast in biliary tree with prompt emptying into the duodenum. There was no sign of biliary anomaly filling defect or other problem. Only minimal retrograde flow into the common hepatic duct was noted. The biliary radicles were not otherwise seen. The catheter was removed. The cystic duct was triply clipped and divided. The gallbladder was dissected free in a retrograde fashion using electrocautery. Gallbladder was placed in an endobag, extracted and examined on the back table showing profound cholesterolosis, but no stones proper. There was no sign of malignancy. Electronically Signed By: JAVIER TOMLIN MD 05/07/24 0271 PATIENT NAME: ARSENIO BARKLEY OPERATIVE REPORT DATE OF : 60 REPORT #: [id number] PHYSICIAN: JAVIER TOMLIN MD PCP: SOFIYA LAL MD REPORT IS CONFIDENTIAL AND NOT TO BE RELEASED WITHOUT AUTHORIZATION [facility] [address], [place] [address] Signed Hemostasis was assured and there was no sign of bile leak or bleeding. Attention was turned towards the right lower quadrant. A 5 mm right lower quadrant trocar was ultimately placed to allow for optimal manipulation of the right colon and cecum. Appendix at the base appeared to be reasonably normal. However, it extended into the retroperitoneum and was densely adherent in the lateral posterior aspect. The terminal ileum was identified as confirmed by the antimesenteric fat pad of Delilah and found to be normal. Various manipulations were used to free the distal portion of the appendix but it was densely adherent to the retroperitoneum all more suspicious given the findings previously noted on CT scan. A window was created between the appendix and mesoappendix. An Endo WALI stapling device used to transect the base of the appendix flushed with the cecum. The mesentery was then dissected free more fully and partially divided with the WALI stapling device. At that point, distraction of the appendix in its midportion from the distal portion was noted. The was removed, thus far was extracted from the abdomen. Further dissection undertaken on the distal portion. With position change of the table and so forth obscuring bowel loops could be more easily manipulated out of the way. Ultimately, the tip of the appendix was seen and was somewhat adherent to the retroperitoneum. Once this was more fully evaluated, the adhesions to the retroperitoneum could be bluntly and sharply dissected ultimately using electrocautery. Remaining mesoappendix to the distal segment of the appendix was transected with a WALI stapling device. Bits of debris in the midportion of the appendix as well as some mucopurulent material was suctioned free. The appendix was extracted with an endobag so as to avoid contamination of subcutaneous tissue. withdrawn into the trocar without contaminating the subcutaneous layer. Photographs were taken of the specimen. Irrigation was undertaken of the right lower quadrant, assuring there was no remnant of fecalith or any other problem and once satisfied it was completely clear, plans made for closure. The trocars removed under direct visualization showing no sign of bleeding. The infraumbilical fascial incision was reapproximated with interrupted 0 Vicryl suture. A 10 mL of 0.25% Marcaine with epinephrine injected locally. The skin was closed with interrupted 3-0 Vicryl. Steri-Strips were applied. The patient tolerated procedure well, was ultimately extubated and transferred to the recovery room in good condition having suffered no complication. Javier Tomlin MD Electronically Signed By: JAVIER TOMLIN MD 05/07/24 1225 PATIENT NAME: ARSENIO BARKLEY OPERATIVE REPORT DATE OF : 60 REPORT #: [id number] PHYSICIAN: JAVIER TOMLIN MD PCP: SOFIYA LAL MD REPORT IS CONFIDENTIAL AND NOT TO BE RELEASED WITHOUT AUTHORIZATION [address] [address] Signed /MARIA EUGENIA /[id number] cc: Dr. Maryann Aguilar MD Copies: SOFIYA LAL MD ~ Electronically Signed By: JAVIER TOMLIN MD 05/07/24 1225 PATIENT NAME: ARSENIO BARKLEY OPERATIVE REPORT DATE OF : 60 REPORT #: [id number] PHYSICIAN: JAVIER TOMLIN MD PCP: SOFIYA LAL MD REPORT IS CONFIDENTIAL AND NOT TO BE RELEASED WITHOUT AUTHORIZATION
--- NOTE | 2024-05-07 12:25 | HP ---
[facility] [address], [place] [address] Signed ADMISSION DATE: 05/04/2024 ISSUE: Epigastric pain, probable acute cholecystitis with sludge. HISTORY OF PRESENT ILLNESS: This morbidly obese, BMI 44.5, woman is accompanied by her . Yesterday, Sunday, May 03, 2024, while at a [employer] service, she had profound epigastric pain with associated diaphoresis, sweating, and so forth. She had persistent abdominal pain and left the methodist and at home applied a heating pad and other measures, which seemed to make no difference to her. She presented to the emergency room at approximately 6 p.[address] was evaluated by Dr. Wolf. A CT scan of the abdomen was performed which showed a distended gallbladder but no stones. Her symptoms were suggestive of biliary colic or acute cholecystitis and she subsequently underwent a gallbladder ultrasound which showed sludge but no stones within the gallbladder. Care was transferred to Dr. Barrientos emergency room physician and continued observation and pain medication and so forth showed her to have improvement of her symptoms, but significant tenderness in the epigastric area and right subcostal area. LABORATORY STUDIES: Showed an elevated white count of 11.7, hematocrit of 40.4, platelets of 208,000. Chem profile showing normal liver enzymes and lipase normal at 72. I was called in the french polisher hours and agreed to admit the patient on the presumptive diagnosis of acute cholecystitis related to biliary sludge. The patient does have morbid obesity as previously noted; she has had two children, which are grown. Her daughter has had a cholecystectomy. PAST MEDICAL HISTORY: Notable for hypertension. She has had no abdominal operations in the past. ALLERGIES: She has coated allergies to penicillin (swelling, rash and itching). Sulfa medication and amoxicillin. CURRENT MEDICATIONS: At home include losartan, metoprolol, phentermine, amlodipine, montelukast, Lyrica, omeprazole for reflux, and Tylenol. She recently has had progressive right shoulder pain related to exertion and has an Electronically Signed By: JAVIER TOMLIN MD 05/07/24 1225 PATIENT NAME: ARSENIO BARKLEY HISTORY AND PHYSICAL DATE OF : 60 REPORT #: [id number] PHYSICIAN: JAVIER TOMLIN MD PCP: SOFIYA LAL MD REPORT IS CONFIDENTIAL AND NOT TO BE RELEASED WITHOUT AUTHORIZATION [address] [address] Signed appointment to see Dr. Silvestre Marie Sunday this coming week. SOCIAL HISTORY: She is . She lives in [place]. She is retired and "disabled" related to low back pain issues. PHYSICAL EXAMINATION: GENERAL: A pleasant, obese woman who does not look systemically toxic. She is accompanied by her . NECK: Trachea is midline. CHEST: Shows normal respiratory excursion. HEART: Pulses regular. ABDOMEN: Definitely obese, but soft and not currently tender. EXTREMITIES: Show no clubbing, cyanosis, or edema. ASSESSMENT: I discussed in great detail the pathophysiology of biliary disease and high probability this represented episode of significant and severe biliary colic which largely has resolved. The gallbladder was quite moderately distended on CT scan and the ultrasound showed biliary sludge. An elevated lactate level of 2.1 was noted, now it is 1.2. I think the probability of this represents anything other than biliary disease is quite low. She is already on PPI medication. The development of an ulcer or other similar problem is somewhat unlikely. Not mentioned previously, but nevertheless found on CT scan was the finding of the tip of the appendix being dilated at 9 mm, which may or may not represent a concerning feature specifically carcinoid tumor. She has no evidence whatsoever of appendicitis, but that operation if permitted I would absolutely endeavor to evaluate the appendix and if appropriate excise it concurrently. We discussed the risk of bleeding, infection, failure to cure the problem, recurrent symptoms unrelated to this presumed biliary problem as well as other unforeseen complications. The patient and her understand this and will be reviewing the gallbladder booklet I have available for them anticipating probable cholecystectomy if they agree to it. They understand the risk of bleeding, infection, bile duct injury, and so forth and are inclined to proceed but need some time to think it through which is perfectly fine. Electronically Signed By: JAVIER TOMLIN MD 05/07/24 1225 PATIENT NAME: ARSENIO BARKLEY HISTORY AND PHYSICAL DATE OF : 60 REPORT #: [id number] PHYSICIAN: JAVIER TOMLIN MD PCP: SOFIYA LAL MD REPORT IS CONFIDENTIAL AND NOT TO BE RELEASED WITHOUT AUTHORIZATION [facility] [address] [place] [id number] Signed Javier Tomlin MD JM/MODL /[id number] cc: MD Dr. Iliana Sanchez Dr. Copies: SOFIYA LAL MD ~ Electronically Signed By: JAVIER TOMLIN MD 05/07/24 1225 PATIENT NAME: ARSENIO BARKLEY HISTORY AND PHYSICAL DATE OF : 60 REPORT #: [id number] PHYSICIAN: JAVIER TOMLIN MD PCP: SOFIYA LAL MD REPORT IS CONFIDENTIAL AND NOT TO BE RELEASED WITHOUT AUTHORIZATION
--- NOTE | 2024-05-09 12:27 | PATH ---
[facility] [address] [place], [place] [address] Signed SPECIMEN(S): A GALLBLADDER SPECIMEN(S): B APPENDIX SPECIMEN SOURCE: A. GALLBLADDER B. APPENDIX CLINICAL HISTORY: Acute cholecystitis FINAL PATHOLOGIC DIAGNOSIS: A. Gallbladder, cholecystectomy: - Gallbladder with cholesterolosis. - There is no evidence of acute cholecystitis. B. Appendix, appendectomy: - No evidence of acute or chronic appendicitis. - No evidence of periappendicitis. - No evidence of neoplasia. COMMENT: B. The rest of the appendix will be submitted for histopathologic examination. An addendum report will follow. TWK MICROSCOPIC EXAMINATION: Histologic sections of all submitted blocks are examined by light microscopy. These findings, together with the gross examination, support the pathologic diagnosis. GROSS DESCRIPTION: A. The specimen, labeled and designated "Mitzy Parikh, gallbladder per requisition," is received in formalin and consists of Specimen: Previously surgically open gallbladder. Dimensions: 8.2 x 3.2 x 2.1 cm. Serosa: Smooth. Cystic Duct: Unobstructed. Calculi: Absent in container and specimen. Mucosa: Green and velvety with yellow flecking. Wall thickness: 0.2 cm. Lymph node: No pericystic lymph nodes are grossly identified. Additional: None. PATIENT NAME: ARSENIO PARIKH PATHOLOGY DATE OF : 60 REPORT #: [id number] PHYSICIAN: [employer] [facility] PCP: SOFIYA LAL MD REPORT IS CONFIDENTIAL AND NOT TO BE RELEASED WITHOUT AUTHORIZATION [facility] [address] [facility] [place] [address] Signed Lead Game Designer sections are submitted in (A1). AA (under the direct supervision of a pathologist) B. The specimen, labeled and designated "Mitzy Parikh, appendix," is received in formalin and consists of Specimen: Appendix with mesoappendix. Dimensions: 8.2 x 1 x 0.9 cm. Serosa: Cedeno-pink to pink-purple and diffusely hemorrhagic. Defect: Specimen is into 2 portions.. Inking: Staple line is inked Blue. Mucosa: Cedeno-pink and pinpoint to slightly dilated filled with a hemorrhagic fecal material.. Fecalith: Not grossly identified. Additional: None. Lead Game Designer sections are submitted in (B1). AA (under the direct supervision of a pathologist) The Gross Description was prepared using a voice recognition system. The report was reviewed for accuracy; however, sound-alike word errors, addition and/or deletions may occur. If there is any question about this report, please contact Client Services. ADDITIONAL NOTES: Immunohistochemical and/or in situ hybridization studies if performed in this case included appropriate positive controls that reacted as expected. This test was developed and its performance characteristics determined by [facility]. It has not been cleared or approved by the U.S. Food and Drug Administration. The FDA has determined that such clearance or approval is not necessary. This test is used for clinical purposes. It should not be regarded as investigational or for research. [facility] is certified under the Clinical Laboratory Improvement Amendments of 1988 (CLIA) as qualified to perform high complexity clinical laboratory testing. PERFORMING LABORATORY: Technical component was performed by [facility], [address] [place] [id number] (CLIA# [id number]). Professional interpretation was performed by [facility], [address] [place] [address] (CLIA#:[id number]). Diagnostician: Jeff Castaneda MD Pathologist PATIENT NAME: ARSENIO PARIKH PATHOLOGY DATE OF : 60 REPORT #: [id number] PHYSICIAN: [facility] PCP: SOFIYA LAL MD REPORT IS CONFIDENTIAL AND NOT TO BE RELEASED WITHOUT AUTHORIZATION [address] [place], [place] [address] Signed Electronically Signed 05/09/2024 Copies: ~ PATIENT NAME: ARSENIO PARIKH PATHOLOGY DATE OF : 60 REPORT #: [id number] PHYSICIAN: [facility] PCP: SOFIYA LAL MD REPORT IS CONFIDENTIAL AND NOT TO BE RELEASED WITHOUT AUTHORIZATION
== END 2024-05-05 11:04 | disposition home or self-care (01) ==
LOC: ED 17:16 → MS 05-04 00:16
PROVIDERS: Emergency Medicine; Internal Medicine; ADMIT Surgery; ATTEND Surgery
PROC: 0FT44ZZ Resection of Gallbladder, Percutaneous Endoscopic Approach (ICD-10-PCS; principal; 2024-05-04 11:30)
PROC: 0DTJ0ZZ Resection of Appendix, Open Approach (ICD-10-PCS; 2024-05-04 11:30)
DX: K81.0 Acute cholecystitis (principal); K36 Other appendicitis; I10 Essential (primary) hypertension; Z88.0 Allergy status to penicillin; Z88.1 Allergy status to other antibiotic agents; Z88.2 Allergy status to sulfonamides; E66.01 Morbid (severe) obesity due to excess calories; Z68.41 Body mass index [BMI] 40.0-44.9, adult; Z79.899 Other long term (current) drug therapy
CPT/HCPCS: 00790; 36415; 71045; 74177; 74300; 76705; 80053; 81003; 83605; 83690; 84484; 85025; 93005; 93010; 94762; 96361; 96375; 96376; 99285-25; A9270; G0378; J0131; J0330; J0690; J1100; J1171; J1885; J2003; J2405; J2470; J2704; J3010; J3490; J7030; J7121; Q9967

== ENCOUNTER 2024-05-09 11:10 | Emergency (ER) | payer BC ==
[~2024-05-09] VITALS: Ht 170.2 cm; Wt 129.0 kg
[~2024-05-09 11:10] MED LIST changes: +CIPROFLOXACIN500 MG PO; +LOSARTAN-HCTZ1 EAC2 PO; +LYRICA75 MG PO; +METOPROLOL SUC100 MG PO; +PERCOCET 7.5-31 EACH PO; +PHENTERMINE HCL30 MG PO
[2024-05-09 13:14] VITALS: BP 145/80
[2024-05-09] MEDS ORDERED: CEPHALEXIN500 MG PO (13:17)
== END 2024-05-09 13:23 | disposition home or self-care (01) ==
LOC: ED 11:10
DX: T81.49XA Infection following a procedure, other surgical site, initial encounter (principal); L03.311 Cellulitis of abdominal wall; Y83.8 Other surgical procedures as the cause of abnormal reaction of the patient, or of later complication, without mention of misadventure at the time of the procedure; I10 Essential (primary) hypertension; Z88.0 Allergy status to penicillin; Z88.2 Allergy status to sulfonamides; Z79.899 Other long term (current) drug therapy
CPT/HCPCS: 99283

== ENCOUNTER 2025-03-20 11:27 | Emergency (ER) | payer OTHER, BC ==
[~2025-03-20] VITALS: Ht 170.2 cm; Wt 120.0 kg
[~2025-03-20 11:27] MED LIST changes: +CEPHALEXIN500 MG PO; +PHENTERMINE H37.5 MG PO; -PHENTERMINE HCL30 MG PO
[2025-03-20] MEDS ORDERED: CEPHALEXIN500 M1 PO (12:11)
[2025-03-20] MEDS ORDERED: CEPHALEXIN MONOHYDRATE 500 MG CAP PO ONE (12:15)
[2025-03-20 13:28] VITALS: BP 147/69
== END 2025-03-20 13:28 | disposition home or self-care (01) ==
LOC: ED 11:27
DX: S92.511A Displaced fracture of proximal phalanx of right lesser toe(s), initial encounter for closed fracture (principal); X58.XXXA Exposure to other specified factors, initial encounter; L03.031 Cellulitis of right toe; I10 Essential (primary) hypertension; Z88.0 Allergy status to penicillin; Z88.2 Allergy status to sulfonamides; Z79.899 Other long term (current) drug therapy
CPT/HCPCS: 73660; 99283; A9270